=== PATIENT | female | born 1955 | race Caucasian/White ===

== ENCOUNTER 2020-04-24 07:21 | Outpatient (REF) | payer OTHER, SELFPAY ==
--- NOTE | 2020-04-24 07:26 | MM_ITS ---
EXAMINATION: MM SCREENING DIGITAL BREAST TOMOSYNTHESIS, BILATERAL CLINICAL INFORMATION: Screening. Asymptomatic. Family history breast cancer paternal grandmother. The lifetime risk of breast cancer based on the Tyrer-Cuzick Model is 7%. COMPARISON: Mammography: 04/14/2019, 02/01/2018, 10/17/2016, 04/14/2014 TECHNIQUE: Digital breast tomosynthesis is performed in both the craniocaudal and mediolateral oblique views along with computer-aided detection (CAD). Synthesized 2D images are generated from the tomosynthesis. FINDINGS: The breasts are heterogeneously dense, which may obscure small masses (ACR BI-RADS breast composition Category c). There is inhomogeneous parenchymal pattern with some stable asymmetries similar to prior exams dating back to 2013. There is no developing density or interval mass or architectural abnormality. No abnormal calcifications on the right. The left MLO view has grouped punctate densities anterior breasts just above the posterior nipple line 3 cm from nipple suspected to represent digital processing artifact rather than grouped calcifications. Patient will be recalled for additional imaging. MM/MM tomosynthesis screening BI IMPRESSION: 1. Left: Fine grouped calcifications anterior upper breast on MLO view versus digital processing artifact. 2. Right: No significant changes from prior studies. ASSESSMENT: BI-RADS 0: Incomplete - Need Additional Imaging Evaluation RECOMMENDATION: 1. Additional views of the left breast (magnification ML, magnification CC-inner and outer). 2. Radiology department staff will contact the patient for additional imaging. This patient's information was entered into a reminder system with a target due date for their next mammogram.
== END 2020-04-24 07:22 | disposition home or self-care (01) ==
LOC: HO.MAMMO 07:21
PROVIDERS: Visit Provider Nurse Practitioner Family
DX: Z12.31 Encounter for screening mammogram for malignant neoplasm of breast (principal)
CPT/HCPCS: 77063; 77067

== ENCOUNTER 2020-06-29 14:57 | Outpatient (REF) | payer OTHER, SELFPAY ==
--- NOTE | 2020-06-29 15:03 | MM_ITS ---
EXAMINATION: MM DIAGNOSTIC DIGITAL MAMMOGRAPHY, LEFT CLINICAL INFORMATION: Recall for question of fine grouped calcifications anterior upper left breast on MLO view versus digital processing artifact. COMPARISON: Mammography: 04/24/2020, 04/14/2019 TECHNIQUE: Digital mammography is performed in the following views: Magnification CC x2, magnification ML FINDINGS: The breasts are heterogeneously dense, which may obscure small masses (ACR BI-RADS breast composition Category c). The additional magnification views are unremarkable. There are no grouped calcifications. Finding on recent mammography is believed to have represented 3-D digital processing artifact on synthesized image as suspected. Results are discussed with the patient at time of visit. MM/MM added views LT IMPRESSION: Additional magnification views are unremarkable. No grouped calcifications. ASSESSMENT: BI-RADS 1: Negative RECOMMENDATION: Routine annual mammography screening. This patient's information was entered into a reminder system with a target due date for their next mammogram.
== END 2020-06-29 14:58 | disposition home or self-care (01) ==
LOC: HO.MAMMO 14:57
PROVIDERS: PCP Nurse Practitioner Family; Visit Provider Nurse Practitioner Family
DX: R92.1 Mammographic calcification found on diagnostic imaging of breast (principal)
CPT/HCPCS: 77065

== ENCOUNTER → 2024-06-24 08:45 | Outpatient (BNV) | payer MEDICARE, SELFPAY | PROVIDERS: Absent Provider Internal Medicine; PCP Nurse Practitioner Family; Visit Provider Internal Medicine | DX: Z12.31 Encounter for screening mammogram for malignant neoplasm of breast (principal) | CPT/HCPCS: 77063; 77067 ==

== ENCOUNTER 2024-08-08 09:04 | Outpatient (REF) | payer MEDICARE, SELFPAY ==
--- NOTE | ~2024-08-08 | US_ITS ---
EXAMINATION: MM DIAGNOSTIC DIGITAL BREAST TOMOSYNTHESIS, LEFT Limited left breast ultrasound. CLINICAL INFORMATION: Call back from screening for left asymmetry on CC view. COMPARISON: Mammography: Available prior examinations. TECHNIQUE: Digital breast tomosynthesis is performed in both the craniocaudal and mediolateral oblique views along with computer-aided detection (CAD). Synthesized 2D images are generated from the tomosynthesis. Limited left breast ultrasound. FINDINGS: The breasts are heterogeneously dense, which may obscure small masses (ACR BI-RADS breast composition Category c). Asymmetry in the lateral left breast posterior depth on CC view persist on additional imaging projections and demonstrates associated architectural distortion. No suspicious calcifications or other abnormal findings. Targeted color Doppler ultrasound scanning in the lateral left breast demonstrates normal fibronodular breast tissue. There is no sonographic abnormality. US/US breast LT limited mamm only IMPRESSION: Asymmetry with associated distortion the lateral left breast posterior depth on CC view. Recommend therapeutic core needle biopsy at this time for confirmation. No sonographic correlate was seen. The findings and recommendations were discussed with the patient the procedure will be scheduled. ASSESSMENT: BI-RADS BI-RADS 4 - Suspicious finding RECOMMENDATION: Biopsy recommended Results were provided to the patient at time of visit by the technologist. This patient's information was entered into a reminder system with a target due date for their next mammogram. Electronically signed by: Melinda Lawrence DO 08/08/2024 10:44 AM SETH
--- OUTSIDE RECORDS SUMMARY | 2024-08-08 09:41 | XMS_ITS ---
Author Organization [facility] Address [address] [place] [id number] Care Team Providers Care Publicity Person Name Role Phone KARIS BROWN Primary Care Provider Unavail able Tor Elizabeth Unavailable [phone] ALLERGIES No Known Allergies REASON FOR VISIT patient presents today for fecal incontinence MEDICATIONS Medication SIG (Take, Route, Frequency, Duration) Notes Start Date End Date Status Multivitamin Adults - as directed Orally Active Align Active Magnesium 400 MG 1 capsule Orally Onc e a day For leg cramps Active SOCIAL HISTORY Tobacco Use: Social History Observation Description Date Details (start date - stop date) Never Smoker NA - NA Sex Assigned At : Social History Observation Description Sex Assigned At Unknown Tobacco Use/Smoking Question Answer Notes Patient is a nonsmoker Alcohol Screen Question Answer Notes Did you have a drink contain ing alcohol in the past year? Yes How often did you have a dri nk containing alcohol in the past year? 2 to 4 times a month (2 points) How many drinks did you have on a typical day when you were drinking in the past year? 1 or 2 drinks (0 point) Points 2 Interpretation Negative PROBLEMS Problem Type ICD Code Onset Dates Problem Status W/U Status Risk SNOMED Code Notes Problem Change in bowel function (R19.4) Active confirmed Altered bowel function (12167438) VITAL SIGNS Blood pressure systolic 00 mm Hg 06/21/19 25 Blood pressure diastolic 00 mm Hg 025 Height 5 ft 3 in in 06/21/2024 Weight 169 lbs 06/21/2024 BMI 29.93 kg/m2 06/21/2024 Encounters Encounter Location Date Provider Diagnosis [facility] [address] [place] [address] 06/21/2024 Tor Elizabeth Change in bowel function R19.4 ASSESSMENTS Encounter Date Diagnosis Assessment Notes Treatment Notes Treatment Clinical Notes 06/21/2024 Change in bowel function (ICD-10 - R19.4) Stop Magnesium for 1 or 2 weeks to see if that helps with the BM's Try 2 Metamucil fiber pills daily with a glass of water PLAN OF TREATMENT Treatment Notes Assessment Notes Change in bowel function Stop Magnesium for 1 or 2 weeks to see if that helps with the BM's Try 2 Metamucil fiber pills daily with a glass of water Pending Test Test Name Order Date CELIAC PANEL #10 06/21/2024 Future Test Test Name Order Date COLONOSCOPY 06/21/2024 Next Appt Details Follow Up: prn, Reason: Provider Name:Tor Elizabeth , 09/26/2024 11:40:00 AM, [address] [place] [address] , [place], [place], [phone], Progress Notes * Examination Category Sub-Category Detail Notes General Examination GENERAL APPEARANCE: pleasant , well nourished, well developed, in no acute distress HEAD: EYES: sclera non-icteric EARS: NOSE: THROAT: NECK/THYROID: no cervical lymphade nopathy, neck supple HEART: S1, S2 normal CHEST: LUNGS: clear to auscultatio n bilaterally ABDOMEN: normal bowel sounds, no guarding or rigidity, no guarding or rigidity, no masses palpable, soft, nontender, nondistended NEUROLOGIC: alert and oriented SKIN: nonjaundiced, no spi mabel angiomata EXTREMITIES: no edema PERIPHERAL PULSES: BACK: BREASTS: MUSCULOSKELETAL: MALE GENITOURINARY: LYMPH NODES: RECTAL EXAM: FEMALE GENITOURINARY: ORAL CAVITY: mucosa moist
== END 2024-08-08 09:05 | disposition home or self-care (01) ==
LOC: HO.MAMMO 09:04
PROVIDERS: PCP Nurse Practitioner Family; Visit Provider Nurse Practitioner Family
DX: R92.8 Other abnormal and inconclusive findings on diagnostic imaging of breast (principal)
CPT/HCPCS: 76642; 77061; 77065

== ENCOUNTER → 2024-08-08 09:15 | Outpatient (BNV) | payer MEDICARE, SELFPAY | PROVIDERS: PCP Nurse Practitioner Family; Visit Provider Internal Medicine | DX: N64.89 Other specified disorders of breast (principal) | CPT/HCPCS: 76642; 77065; G0279 ==

== ENCOUNTER 2024-08-17 08:49 | Outpatient (REF) | payer MEDICARE, SELFPAY ==
--- NOTE | ~2024-08-17 | MM_ITS ---
EXAMINATION: STEREOTACTICALLY-GUIDED LEFT BREAST BIOPSY CLINICAL INFORMATION: Asymmetry in the lateral left breast posterior depth on CC view with associated distortion without sonographic correlate. COMPARISON: Available prior examinations on PACS. INFORMED CONSENT: After the details of the procedure, as well as the risks (including, but not limited to, bleeding, hematoma formation, and infection), benefits and alternatives (including doing nothing, short-interval follow up, and surgery) to the procedure were explained to the patient in detail and all of her questions were answered, informed written consent was obtained. TECHNIQUE/FINDINGS: A timeout was performed. The lesion intended for biopsy was identified stereotactically and targeted. The skin of the left breast was then cleansed with sterile solution. Using stereotactic guidance, aseptic technique, and 1% lidocaine with and without epinephrine for local anesthesia, a total of 14 cores were obtained through the targeted area with a 9-gauge vacuum-assisted Eviva core biopsy device from a superior approachAt the completion of tissue sampling, a single top hat-shaped metallic clip was deposited at the biopsy site. Adequate sampling was achieved. The postprocedure 2-view direct digital mammogram reveals satisfactory positioning of the biopsy clip. The patient tolerated the procedure well and, after assuring adequate hemostasis, was discharged in good condition after reviewing postbiopsy breast care instructions. Final pathology results are pending. MM/MM stereotactic biopsy LT IMPRESSION: 1. Uncomplicated stereotactically-guided core biopsy of the left breast. The 2-view direct digital postprocedure mammogram reveals satisfactory positioning of the biopsy clip. 2. Final pathology results are pending. A separate report with final recommendations will be issued once these results are made available. Electronically signed by: Melinda Lawrence DO 08/17/2024 10:11 AM SETH
--- OUTSIDE RECORDS SUMMARY | 2024-08-17 09:35 | XMS_ITS | Patient Health Record ---
Author Organization [facility] Address [address] [place] [address] Care Team Providers Care Piano Technician Name Role Phone PERNELL BROWNHLEEN Primary Care Provider Tee Tor Hough Unavailable [phone] Allergies No Known Allergies Results Component Value Reference Range Notes Immunoglobulin A Reviewed date:06/29/2024 11:39:22 PM Interpretation: Performing Lab:[facility], [address] [place] [phone] Notes/Report: Immunoglobulin A 187 70-320 mg/dL THIS TEST WAS PERFORMED AT: [facility] [address] [place] [phone] MICHAEL WATKINS MD Transglutaminase Ab IgG Reviewed date:06/29/2024 11:39:29 PM Interpretation: Performing Lab:[facility], [address] [place] [phone] Notes/Report: Transglutaminase Ab IgG <1.0 Value Interpretation ----- <15.0 Antibody not detected > or = 15.0 Antibody detected THIS TEST WAS PERFORMED AT: [facility] [address] [place] [phone] MICHAEL WATKINS MD Transglutaminase IgA Reviewed date:06/29/2024 11:39:35 PM Interpretation: Performing Lab:[facility], [address] [place] [phone] Notes/Report: Transglutaminase IgA <1.0 Value Interpretation ----- <15.0 Antibody not detected > or = 15.0 Antibody detected THIS TEST WAS PERFORMED AT: [facility] [address] [place] [phone] MICHAEL WATKINS MD Gliadin Ab Panel Reviewed date:06/29/2024 11:39:43 PM Interpretation: Performing Lab:[facility], [address] [place] [phone] Notes/Report: Gliadin Deamidated IgA Ab <1.0 Value Interpretation ----- <15.0 Antibody not detected > or = 15.0 Antibody detected Gliadin Deamidated IgG Ab <1.0 Value Interpretation ----- <15.0 Antibody not detected > or = 15.0 Antibody detected THIS TEST WAS PERFORMED AT: [facility] [address] [place] [phone] MICHAEL WATKINS MD Endomysial IgA rflx Titer Reviewed date:07/17/2024 04:32:36 PM Interpretation: Performing Lab:[facility], [address] [place] [phone] Notes/Report: Endomysial IgA Antibody Negative Negative THIS TEST WAS PERFORMED AT: [facility]/[address] [phone] CAMRON OLIVA MD,PHD Endomysial Titer TNP Reason For Referral No Information Medications Medication SIG (Take, Route, Frequency, Duration) Notes Start Date End Date Status Multivitamin Adults - as directed Orally Active Align Active Magnesium 400 MG 1 capsule Orally Onc e a day For leg cramps Active Immunizations Vaccine Route Administration Date Status Comme nts Influenza Unknown 07/16/2017 Administered Social History Tobacco Use: Social History Observation Description Date Details (start date - stop date) Never Smoker NA - NA Tobacco Use/Smoking Question Answer Notes Patient is [...] drinks (0 point) Points 2 Interpretation Negative Section Notes: Nonsmoker; no sig alcohol Nonsmoker; no sig alcohol Problems Problem Type SNOMED Code ICD Code Onset Dates Problem Status W/U Status Risk Notes Problem [id number] Encounter for screening for malignant neoplasm of colon (Z12.11) Active confirmed Problem Altered bowel function (51811889) Change in bowel function (R19.4) Active confirmed Problem [id number] Pre-procedural examination (Z01.818) Active confirmed Vital Signs Blood pressure diastolic 00 mm Hg 06/21/2024 Height 5 ft 3 in in 06/21/2024 Blood pressure systolic 00 mm Hg 06/21/2024 Weight 169 lbs 06/21/2024 BMI 29.93 kg/m2 06/21/2024 Encounters Encounter Location Date Provider Diagnosis [facility] [address] [place] [address] 06/21/2024 Tor Elizabeth Change in bowel function R19.4 Assessments Encounter Date Diagnosis (ICD Code) Assessment Notes Treatment Notes Treatment Clinical Notes Section Notes 06/21/2024 Change in bowel function (ICD-10 - R19.4) Stop Magnesium for 1 or 2 weeks to see if that helps with the BM's Try 2 Metamucil fiber pills daily with a glass of water Overall, Trina appears well. Her current symptomatology seems most consistent with some irritable bowel syndrome and some probable diminished anorectal sphincter tone. I doubt this represents anything such as inflammatory bowel disease or lower GI neoplasm. At this point I did advise her to continue her dietary restrictions as best as possible to maintain some bowel movement regularity. However, I did advise her to add some daily Metamucil with plenty of water to see if that can help improve her bowel movement regularity also. I also advised her to stop her magnesium supplement for couple of weeks to see if that is contributing to any of her bowel movement issues as well. Although she appears quite well from a clinical standpoint and does not have any other worrisome symptoms, I did recommend that she undergo a followup colonoscopy for evaluation of this change in her bowel habits since her last colonoscopy is approaching 6 years ago. We did review the rationale for that in regard to colorectal cancer prevention and/or early detection. Full consent was obtained from her for this, including risks of bleeding and perforation. The procedure will be done with monitored anesthesia care. Given her family history of celiac disease in her mother and Trina's change in bowel habits, I shall check a celiac disease profile on her as well so as to rule out that possibility. I did advise Trina to contact me prior to the procedure if she has any problems or questions I can be of assistance with. Trina was comfortable with this plan. Thank you again for allowing me to participate in Trina's care. I shall continue to keep you advised of her progress. Plan Of Treatment Pending Test Test Name Order Date CELIAC PANEL #10 06/21/2024 Future Test Test Name Order Date COLONOSCOPY 10/21/2018 COLONOSCOPY 06/21/2024 Next Appt Details Provider Name:Tor Tinajero Clara , 09/26/2024 11:40:00 AM, [address] [place] [address] , [place], [place], [phone], Insurance Providers Payer Name Payer Address Payer Phone Subscriber Number Group Number Insured Name Patient Relationship to Insured Coverage Start Date Coverage End Date [facility] [address] [place] [phone] [id number] DELMIS TRINA Self - patient is the insured Medical (General) History Medical History History ICD Code Denies [place],DM,CVA,Lung disease,renal dise ase Colonoscopy in 11/2006 with o nly hyperplastic polyps, sigmoid diverticulosis, and internal hemorrhoids Negative screening colonoscopy in 10/2018 Surgical History Surgery Date(Month/Year) Appendectomy Knee surgery Cataracts 06/2024
--- OUTSIDE RECORDS SUMMARY | 2024-08-17 09:35 | XMS_ITS ---
Author Organization [facility] Address [address] [place] [address] Care Team Providers Care Ticket Marker Name Role Phone KARIS BROWN Primary Care Provider Unavail able ElizabethTor Unavailable [phone] Allergies No Known Allergies REASON FOR VISIT patient presents today for fecal incontinence Medications Medication SIG (Take, Route, Frequency, Duration) Notes Start Date End Date Status Multivitamin Adults - as directed Orally Active Align Active Magnesium 400 MG 1 capsule Orally Onc e a day For leg cramps Active Social History Tobacco Use: Social History Observation [...] Negative Section Notes: Nonsmoker; no sig alcohol Problems Problem Type SNOMED Code ICD Code Onset Dates Problem Status W/U Status Risk Notes Problem Altered bowel function (81662597) Change in bowel function (R19.4) Active confirmed Vital Signs Blood pressure systolic 00 mm Hg 06/21/19 25 Blood pressure diastolic 00 mm Hg 025 Height 5 ft 3 in in 06/21/2024 Weight 169 lbs 06/21/2024 BMI 29.93 kg/m2 06/21/2024 Encounters Encounter Location Date Provider Diagnosis [facility] [address] [place] [address] 06/21/2024 Tor Elizabeth Change in bowel function [...] advised of her progress. Plan Of Treatment Treatment Notes Assessment Notes Change in bowel function Stop Magnesium for 1 or 2 weeks to see if that helps with the BM's Try 2 Metamucil fiber pills daily with a glass of water Pending Test Test Name Order Date CELIAC PANEL #10 06/21/2024 Future Test Test Name Order Date COLONOSCOPY 06/21/2024 Next Appt Details Follow Up: prn, Reason: Provider Name:Tor Tinajero Clara , 09/26/2024 11:40:00 AM, [address] [place] [address] , [place], [place], [phone], Progress Notes * TRINA BENITES FDOB:[birth year] (68 yo F)Acc No.[id number]:06/21/2024 Progress Notes Patient:?TRINA BENITES Provider:?Tor Elizabeth MD :1955???Age:68 Y???Sex:Female D ate:06/21/2024 Address:[address] [place], [place] [id number] Pcp:KARIS BROWN Subjective: * Chief Complaints: * ???Patient presents today fo r fecal incontinence * HPI: ???incontinence:? I saw Trina in consultation today regarding further evaluation of her irregular bowel movements and occasional fecal incontinence. ?I last saw Trina in October of 2018, at which time she underwent a negative followup screening colonoscopy. There was no evidence of any inflammatory bowel disease nor polyps. She describes that over at least the past couple of years her bowel movements have been more irregular with occasional episodes of urgency and some associated loose stools. She has also had intermittent episodes of fecal leakage when she is urinating. She denies any particular problems with urinary incontinence or urgency. ?She describes that she had been eating a lot of dietary fiber with salads, fruit, and vegetables. She had also been eating eggs on a daily basis. She ultimately decided to cut back on a lot of those types of foods and has had a definitive improvement in her symptoms but not completely back to normal. ?She has not noticed any signs of bleeding, any particular abdominal pain, jaundice, significant heartburn, dysphagia, nausea, vomiting, anorexia, nor unintentional weight loss. ?She does take a magnesium supplement daily. She does not use much in the way of any dairy products. ?She has a family history of her mother having had celiac disease. There is no family history of GI malignancy or inflammatory bowel disease. * ROS:?General/Constitutional:?Change in appetite?denies.?Chills?denies.?Fatigue?denies.?Ophthalmologic:?Comments?all negative.?ENT:?Comments?all negative.?Respiratory:?hemoptysis?denies.?Cough?denies.?Cardiovascular:?Chest pain?denies.?Orthopnea?denies.?Gastrointestinal:?Comments?See HPI for details.?Genitourinary:?Hematuria?denies.?Dysuria?denies.?Musculoskeletal:?Painful joints?denies.?Weakness?denies.?Skin:?Itching?denies.?Rash?denies.?Neurologic:?Headache?denies.?Seizures?denies.?Psychiatric:?Comments?all negative.? * Medical History:? * Surgical History:?Appendecto my Knee surgery Cataracts 06/2024 * Hospitalization/Major Diagno stic Procedure:?No Hospitalization History. * Family History:?Father: dece ased.?Mother: , Had celiac disease.? No known hx of colorectal cancer. * Social History:?Tobacco Use:?Tobacco Use/Smoking?Patient is a?nonsmoker.?Drugs/Alcohol:?Alcohol Screen?Did you have a drink containing alcohol in the past year??Yes,?How often did you have a drink containing alcohol in the past year??2 to 4 times a month (2 points),?How many drinks did you have on a typical day when you were drinking in the past year??1 or 2 drinks (0 point),?Points?2,?Interpretation?Negative.?Miscellaneous:?Marital status: . 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 ???Nonsmoker; no sig alcohol. * Medications:?TakingAlign Mag nesium 400 MG Capsule 1 capsule Orally Once a day, Notes: For leg crampsMultivitamin Adults - Tablet as directed Orally Taking Align Taking Magnesium 400 MG Capsule 1 capsule Orally Once a day, Notes: For leg crampsTaking Multivitamin Adults - Tablet as directed Orally DiscontinuedCalcium 100 MG Capsule as directed Orally Medication List reviewed and reconciled with the patientDiscontinued Calcium 100 MG Capsule as directed Orally Medication List reviewed and reconciled with the patient * Allergies:?N.K.D.A.yes[Aller gies Verified] Objective: * Vitals:?Wt: 169 lbs, Ht: 5 f t 3 in, BMI:29.93 Index, BP: 00/00 mm Hg. * Examination: ???General Examination: ?GENERAL APPEARANCE:?pleasant, well nourished, well developed, in no acute distress.?EYES:?sclera non-icteric.?ORAL CAVITY:?mucosa moist.?NECK/THYROID:?no cervical lymphadenopathy, neck supple.?SKIN:?nonjaundiced, no spider angiomata.?HEART:?S1, S2 normal.?LUNGS:?clear to auscultation bilaterally.?ABDOMEN:?normal bowel sounds, no guarding or rigidity, no guarding or rigidity, no masses palpable, soft, nontender, nondistended.?EXTREMITIES:?no edema.?NEUROLOGIC:?alert and oriented.? Assessment: * Assessment: 1.?Change in bowel function - R19.4 (Primary)? Overall, Trina appears we ll. Her current symptomatology seems most consistent with [...] to keep you advised of her progress. Plan: * Treatment: Notes: Stop Magnesium for 1 or 2 weeks to see if that helps with the BM's Try 2 Metamucil fiber pills daily with a glass of water ?? * Procedure Codes:?3017F COLOR ECTAL CA SCREEN DOC [id number] TOBACCO [id number] BP SCR NOT PRFRM REC REASON NOS * Preventive Medicine:? ??Counseling:?Care goal follow-up plan:?Above Normal BMI Follow-up?Giving encouragement to exercise,?BMI management provided?Yes.? ??Urinary Incontinence:?Urinary Incontinence?Assessment:?Absent,?Plan of care documented:?No, reason not specified.? ??Screenings:?Fall Risk Screening?Fall Risk Assessment:?No falls in the past year,?Screening:?No falls in the past year,?Assessment:?Not performed, no reason specified,?Plan of Care:?Not documented, no reason specified.? * Follow Up:?prn * * Sign off status: Completed true * Provider:?Tor Elizabeth MD Date:? 025 Generated for Toribio serna/Kalyn/Abril on:?08/17/2024 09:34 AM EST History and Physical Notes * HPI (History of Present Illness) Category Sub-Category Detail Notes Category Not es incontinence I saw Trina in consultation today regarding further evaluation of her irregular bowel movements and occasional fecal incontinence. I last saw Trina in October of 2018, at which time she underwent a negative followup screening colonoscopy. There was no evidence of any inflammatory bowel disease nor polyps. She describes that over at least the past couple of years her bowel movements have been more irregular with occasional episodes of urgency and some associated loose stools. She has also had intermittent episodes of fecal leakage when she is urinating. She denies any particular problems with urinary incontinence or urgency. She describes that she had been eating a lot of dietary fiber with salads, fruit, and vegetables. She had also been eating eggs on a daily basis. She ultimately decided to cut back on a lot of those types of foods and has had a definitive improvement in her symptoms but not completely back to normal. She has not noticed any signs of bleeding, any particular abdominal pain, jaundice, significant heartburn, dysphagia, nausea, vomiting, anorexia, nor unintentional weight loss. She does take a magnesium supplement daily. She does not use much in the way of any dairy products. She has a family history of her mother having had celiac disease. There is no family history of GI malignancy or inflammatory bowel disease. Examination Category Sub-Category Detail Notes Category Not es General Examination GENERAL APPEARANCE: pleasant , well [...]
[2024-08-17] MEDS: Lidocaine HCl 1 % 20 ML VIAL 5 ML SUBCUT (09:52)
[2024-08-17] MEDS: Lidocaine HCl 1%/Epi 1:100,000 10 ML VIAL 18 ML SUBCUT (09:53)
[2024-08-17] MEDS: Sodium Bicarbonate 8.4% 50 MEQ/50 ML VIAL SUBCUT (09:55)
== END 2024-08-17 08:50 | disposition home or self-care (01) ==
LOC: HO.MAMMO 08:49
PROVIDERS: Absent Provider Internal Medicine; PCP Nurse Practitioner Family; Visit Provider Nurse Practitioner Family
DX: R92.312 Mammographic fatty tissue density, left breast (principal); N64.89 Other specified disorders of breast; R92.8 Other abnormal and inconclusive findings on diagnostic imaging of breast
CPT/HCPCS: 19081; 88305; A4648; J2003; J2004

== ENCOUNTER → 2024-08-17 09:00 | Outpatient (BNV) | payer MEDICARE, SELFPAY | PROVIDERS: Absent Provider Internal Medicine; PCP Nurse Practitioner Family; Visit Provider Internal Medicine | DX: N64.89 Other specified disorders of breast (principal) | CPT/HCPCS: 19081 ==

== ENCOUNTER 2024-09-26 10:26 | Day surgery (SDC) | payer MEDICARE, SELFPAY ==
[2024-09-22 14:15] VITALS: BMI 29.9
[2024-09-26 10:40] VITALS: BMI 27.9
[2024-09-26] MEDS: Lactated Ringers 1,000 ML 50 ML IVCONT (10:42)
[2024-09-26 10:53] VITALS: BP 126/67; PULSE 97; RESP 18; TEMP 36.7; O2SAT 96
--- NOTE | 2024-09-26 11:22 | HO.ANESPROP2 ---
HPI - Anesthesia Eval Consult details Narrative: colon [facility] Past Medical History Medical History No pertinent past medical history Family History Family history of problems with anesthesia: No Surgical History Surgical History Hx of cataract extraction Hx of knee surgery Hx of appendectomy H/O colonoscopy History of Problems with Anesthesia: No Social History Social History Household Members: Spouse Are you a primary regular senior care provider to a significant other at home: No Do you presently have visiting nurse or other home services: No Patient Tobacco Use Status: Never used Tobacco Have you been hit, kicked, punched, or otherwise hurt by someone within the past year? If so, by whom?: No Are you DNR?: No Advance Directives: No Advance Directives Information Provided: Yes Poor oral hygiene: No Meds Allergies Allergy/AdvReac Type Severity Reaction Status Date / Time No Known Allergies Allergy Verified 09/26/24 10:54 Active Medications: Current Medications Lactated Ringer's (Lr) 1,000 mls @ 50 mls/hr IVCONT .Q20H MANSI Last Admin: 09/26/24 10:42 Dose: 50 mls/hr Sodium Biphosphate/Sodium Phosphate (Sodium Phosphate,[place]-Dibasic 133 Ml Enema) 133 ml WA ONCE PRN PRN Reason: Poor Colonoscopy Prep Results Home Medications ?Medication ?Instructions ?Recorded ?Confirmed ?Last Taken ?Type Bifidobacterium longum 10 million 10 cell PO DAILY 09/22/24 09/22/24 Unknown History cell capsule (Align (B.longum)) magnesium oxide 400 mg PO DAILY 09/22/24 09/22/24 Unknown History multivitamin 1 tab PO DAILY 09/22/24 09/22/24 Unknown History Exam Height,Weight and Vital Signs: Height 5 ft 3 in Weight 71.486 kg Last Vital Signs Temp 98.1 F 09/26/24 10:53 Pulse 97 09/26/24 10:53 Resp 18 09/26/24 10:53 BP 126/67 09/26/24 10:53 Pulse Ox 96 09/26/24 10:53 O2 Del Method Room Air 09/26/24 10:53 Airway Mallampati Class: II TM Dist: >3cm Neck ROM: Full Heart: rrr Lungs: cta Assessment and Plan Assessment Anesthesia Assessment: Anesthesia Plan Discussed and Chart Reviewed Final Anesthetic Review Family History of Problems with Anesthesia: No History of Problems with Anesthesia: No NPO: Yes ASA Class: II Final Preanesthetic Review: No Changes in Pt Med Stat, Meds/Allgs Chart Reviewed, Consent Obtained/Reviewed and Anes Risks/Benef Reviewed Patient Risk: Low Procedure Risk: Low Anesthetic Plan Anesthetic Plan: MAC: Disposition: Standard PACU
[2024-09-26 12:34] VITALS: BP 105/53; PULSE 86; RESP 16; TEMP 36.2; O2SAT 98
--- NOTE | 2024-09-26 12:36 | PM.OP ---
Brief Operative Note Date of Service: 09/26/24 Pre-op diagnosis: Change in Bowel Habits Post-op diagnosis: other (Diverticulosis) Procedure: Colonoscopy to the cecum Surgeon: Tor Elizabeth MD Anesthesia: MAC Was an Mold Swabber used for this Procedure?: No Estimated blood loss (mL): 0 Pathology: none sent Condition: stable Disposition: PACU
[2024-09-26 12:49] VITALS: BP 116/63; PULSE 79; RESP 16; TEMP 36.1; O2SAT 98
--- NOTE | 2024-09-26 22:22 | OP_ITS ---
DATE OF SERVICE: 09/26/2024 SURGEON: Tor Elizabeth MD INDICATIONS: The patient presents for evaluation of change in bowel habits. Full consent obtained from her for this, including risks of bleeding and perforation. PREOPERATIVE DIAGNOSIS: Change in bowel habits. POSTOPERATIVE DIAGNOSIS: PROCEDURE PERFORMED: Colonoscopy to the cecum. ESTIMATED BLOOD LOSS: COMPLICATIONS: ANESTHESIA: Monitored anesthesia care. ASSISTANTS: SPECIMENS: POSTOPERATIVE DIAGNOSES: Change in bowel habits, diverticulosis and internal hemorrhoids. DESCRIPTION OF PROCEDURE: The patient was placed in left lateral decubitus position. The digital rectal exam revealed no abnormalities. The Olympus video pediatric colonoscope was entered into the rectum and advanced easily to the cecum. Once in the cecum, I did identify normal-appearing cecal pouch with appendiceal orifice and a normal-appearing ileocecal valve. There was transillumination of light deep in the right lower quadrant. The entire cecum and ileocecal valve appeared normal. The scope was slowly withdrawn, assessing all mucosal surfaces carefully. Preparation was excellent. I did not visualize any sign of polyps, colitis, nor angiodysplasia. There was a [id number] amount of sigmoid diverticulosis. In the rectum, scope was retroflexed visualizing internal hemorrhoids, but no other pathology. The rectal mucosa appeared normal. Scope was straightened and withdrawn from the patient. She tolerated the procedure well and was returned to recovery area in stable condition. IMPRESSION: 1. Diverticulosis. 2. Internal hemorrhoids. PLAN: Given today's negative colonoscopy, 2 previous negative colonoscopies, and no family history of colon cancer in first-degree relatives, I do not think she would need any further screening colonoscopies. She does report that since having stopped her magnesium and starting Metamucil, her bowel movements have definitely improved. Laboratories for celiac disease were negative. As such, she will see me on a p.r.n. basis. Tor Elizabeth MD RMLindsay/ODESSA / [id number]
== END 2024-09-26 13:08 | disposition home or self-care (01) ==
PROVIDERS: PCP Nurse Practitioner Family; Visit Provider Internal Medicine
PROC: 0DJD8ZZ Inspection of Lower Intestinal Tract, Via Natural or Artificial Opening Endoscopic (ICD-10-PCS; CPT 45378; principal; 2024-09-26 11:40)
DX: R19.4 Change in bowel habit (principal); K57.30 Diverticulosis of large intestine without perforation or abscess without bleeding; K64.8 Other hemorrhoids
CPT/HCPCS: G0121; J2003; J2704